=== PATIENT | female | born 1965 | race African-American/Black ===

== ENCOUNTER 2017-06-03 11:20 | Emergency (ER) | payer OTHER ==
[~2017-06-03] VITALS: Ht 165.1 cm; Wt 176.9 kg
[2017-06-03] MEDS ORDERED: DICLOFENAC PO (11:37)
== END 2017-06-03 12:10 | disposition home or self-care (01) ==
LOC: SED 11:20
DX: R04.0 Epistaxis (principal); J06.9 Acute upper respiratory infection, unspecified; I10 Essential (primary) hypertension; Z88.0 Allergy status to penicillin; Z79.899 Other long term (current) drug therapy
CPT/HCPCS: 99283